=== PATIENT | male | born 1985 ===

== ENCOUNTER 2017-12-10 00:22 | Emergency (ER) | payer SELFPAY ==
[2017-12-10 00:26] VITALS: BP 129/86; PULSE 73; RESP 16; TEMP 97.5; O2SAT 96
[2017-12-10] MEDS ORDERED: AMOXICILLIN 250 MG PREPACK#4 BTL TAKEHOME ONE (00:48)
[2017-12-10] MEDS ORDERED: IBUPROFEN 600 MG TAB PO ONE (00:48)
--- NOTE | 2017-12-10 00:50 | EDPHY ---
H & P Stated Complaint: left earache Time Seen by Provider: 12/10/17 00:31 HPI/ROS: Chief Complaint: Left ear pain HPI: 32-year-old male woke this morning with left ear pain. Patient states that he had flu-like symptoms last weekend but has been well the last couple days. Is not taking any medication. No discharge from his ear. No foreign bodies in his ear. No sore throat. No difficulty breathing. No cough. No sinus congestion for the last several days. ROS: 10 point Review of Systems is negative except as noted in the HPI. PMH: Denies Social History: No smoking, no alcohol, no recreational drug use Family History: non-contributory Physical Exam: Gen: Awake, Alert, No Distress HEENT: Ears: He has bilateral cerumen impactions. After clearing he has a erythematous bulging left tympanic membrane, right tympanic membrane is normal Nose: no rhinorrhea Eyes: PERRLA, EOMI Mouth: Moist mucosa Neck: Supple, no JVD Ext: no edema, non-tender Skin: no rash Neuro: CN II-XII intact, Sensation grossly intact, Strength 5/5 in bilateral upper and lower extremities - Personal History Current Tetanus/Diphtheria Vaccine: Unsure - Medical/Surgical History Hx Asthma: No Hx Chronic Respiratory Disease: No Hx Diabetes: No Hx Cardiac Disease: No Hx Renal Disease: No Hx Cirrhosis: No Hx Alcoholism: No Hx HIV/AIDS: No Hx Splenectomy or Spleen Trauma: No Other PMH: denies - Social History Smoking Status: Never smoked Constitutional: Initial Vital Signs Temperature (C) 36.4 C 12/10/17 00:24 Heart Rate 73 12/10/17 00:24 Respiratory Rate 16 12/10/17 00:24 Blood Pressure 129/86 H 12/10/17 00:24 O2 Sat (%) 96 12/10/17 00:24 O2 Delivery Mode Room Air Allergies/Adverse Reactions: No Known Allergies Allergy (Unverified 12/10/17 00:26) Home Medications: Medication Instructions Recorded Amoxicillin Trihydrate [Amoxil] 500 mg PO TID 10 Days cap 12/10/17 Medical Decision Making Procedures: Procedure: Cerumen removal. After a physical exam was performed cerumen needed to be removed from the patient's ear canal. The indication of the procedure was cerumen impaction and inability to complete the ear exam. The procedure was performed with water irrigation and an ear curette. The patient tolerated the procedure well. The procedure was performed by myself. Departure - Departure Disposition: Home, Routine, Self-Care Clinical Impression: Acute otitis media, Cerumen impaction Condition: Good Instructions: Ear Infection (ED), Cerumen Impaction (ED) Additional Instructions: Please take your full course of antibiotics. Take ibuprofen 600 mg 3 times a day for pain. You may also take acetaminophen, 1000 mg every 6 hr. You may by Cerumenex [id number] for treatment of your ear wax. Follow up with your primary care physician in 3-4 days if symptoms are not improving. Referrals: Tee Alvarez DO [Doctor of Osteopathy] - As per Instructions Prescriptions: Amoxicillin Trihydrate [Amoxil] 500 mg PO TID 10 Days cap
== END 2017-12-10 01:09 | disposition home or self-care (01) ==
PROC: F09Z3ZZ Cerumen Management Treatment (ICD-10-PCS; principal; 2017-12-10)
DX: H66.92 Otitis media, unspecified, left ear (principal); H61.22 Impacted cerumen, left ear